=== PATIENT | male | born 1940 | race Caucasian/White ===

== ENCOUNTER 2016-10-31 06:04 | Day surgery (SDC) | payer MEDICARE ==
[~2016-10-31] VITALS: Ht 170.2 cm; Wt 85.0 kg
[2016-10-31] VITALS (9 sets, daily range): BP systolic 117–213; BP diastolic 67–123; PULSE 66–103; RESP 16–21; TEMP 97.6–98.1; O2SAT 93–98
[~2016-10-31 06:04] MED LIST: ALLE10TA10; AMIO200T PO; FISH1000; METO50TA PO; PRAD150C PO; SIMV20TA PO; ZYRT10CA PO
[2016-10-31] MEDS: NS 1000 ML IV SCH (06:30)
[2016-10-31] MEDS ORDERED: SODIUM CHLORID 0.9% 500 ML IV SCH (06:30)
[2016-10-31] MEDS: LACTATED RINGER'S 1000 ML IV SCH (06:30)
[2016-10-31] MEDS ORDERED: NO Heparin, Lovenox, Coumadin at least 12 hours prior to procedure. XX PRN (06:30)
[2016-10-31] MEDS ORDERED: METOPROLOL TARTRATE 25 MG TAB PO PRN (06:30)
[2016-10-31] MEDS ORDERED: Hold AM Insulin & AM Hypoglycemic medications in diabetic patients XX PRN (06:30)
[2016-10-31] MEDS ORDERED: LORazepam 1 MG TAB SL SCH (06:30)
[2016-10-31] MEDS ORDERED: INSULIN HUMAN REGULAR 1,000 UNITS/10 ML VIAL SQ PRN (06:30)
[2016-10-31 07:32] LABS: APTT (PATIENT) 21.7 SEC (24.3-30.1); INTERNATIONAL NORMALIZED RATIO 1.1 RATIO; PROTHROMBIN TIME - PATIENT 12.3 SEC (9.8-11.6)
[2016-10-31 07:36] LABS: BASOPHIL % 0.5 % (0.0-2.0); EOSINOPHIL # 0.3 TH/MM3 (0-0.4); EOSINOPHIL % 5.2 % (0.0-4.0); HEMATOCRIT 44.4 % (39.0-51.0); LYMPH % 23.1 % (9.0-44.0); LYMPHOCYTE # 1.6 TH/MM3 (1.0-4.8); MEAN CELL VOLUME 94.9 FL (80.0-100.0); MEAN CORPUSCULAR HEMOGLOBIN 32.1 PG (27.0-34.0); MEAN CORPUSCULAR HGB CONC 33.9 % (32.0-36.0); MONO % 11.9 % (0.0-8.0); NEUT % 59.3 % (16.0-70.0); PLATELET COUNT 201 TH/MM3 (150-450); RED BLOOD COUNT 4.68 MIL/MM3 (4.50-5.90); RED CELL DISTRIBUTION WIDTH 13.6 % (11.6-17.2); WHITE BLOOD COUNT 6.7 TH/MM3 (4.0-11.0)
[2016-10-31 07:42] LABS: HEMO FLAGS AUTO DIFF
[2016-10-31 07:53] LABS: BICARBONATE 27.7 MEQ/L (21.0-32.0); POTASSIUM 4.1 MEQ/L (3.5-5.1)
[2016-10-31] MEDS ORDERED: PROTAMINE SULFATE 50 MG/5 ML VIAL ONE (09:02)
[2016-10-31] MEDS ORDERED: LEVOFLOXACIN 500 MG PREMIX INJ 100 ML IV ONE (09:02)
[2016-10-31] MEDS ORDERED: ISOPROTERENOL HCL 1 MG/5 ML AMP ONE (09:02)
[2016-10-31] MEDS ORDERED: HEPARIN-D5W INJ 250 ML ONE (09:02)
[2016-10-31] MEDS ORDERED: HEPARIN SODIUM - IV 10,000 UNITS/10 ML VIAL ONE (09:03)
[2016-10-31] MEDS ORDERED: HEPARIN-NS/PF INJ 500 ML ONE (09:04)
[2016-10-31 09:58] LABS: SCAN/DIFF AUTO DIFF CONFIRMED
[2016-10-31] MEDS ORDERED: MIDAZOLAM HCL 2 MG/2 ML VIAL ONE (12:52)
[2016-10-31] MEDS ORDERED: fentaNYL CITRATE 250 MCG/5 ML AMP ONE (12:52)
[2016-10-31] MEDS ORDERED: METOCLOPRAMIDE HCL 10 MG/2 ML VIAL IV PRN (13:15)
[2016-10-31] MEDS ORDERED: ATROPINE SULFATE 1 MG/ML VIAL IV PRN (13:15)
[2016-10-31] MEDS ORDERED: BACITRACIN OINT 0.9 GM PKT TOP ONE (13:15)
[2016-10-31] MEDS ORDERED: ONDANSETRON HCL 4 MG/2 ML VIAL IV PRN (13:15)
[2016-10-31] MEDS ORDERED: oxyCODONE/ACETAMINOPHEN 5 MG/325 MG TAB PO PRN (13:15)
[2016-10-31] MEDS ORDERED: LIDOCAINE HCL 1% 50 ML VIAL INFIL PRN (13:15)
[2016-10-31] MEDS ORDERED: LORazepam 2 MG/ML VIAL IV PRN (13:15)
[2016-10-31] MEDS ORDERED: SODIUM CHLOR 0.9% 250 ML INJ 250 ML IV PRN (13:15)
--- NOTE | 2016-10-31 13:19 | ETE ---
Study Study Date:10/31/2016 STUDY CONCLUSIONS SUMMARY - Left ventricle: The cavity size was normal. Wall thickness was normal. Systolic function was normal. The estimated ejection fraction was in the range of 55% to 60%. Wall motion was normal; there were no regional wall motion abnormalities. - Aortic valve: No evidence of vegetation. - Mitral valve: No evidence of vegetation. - Left atrium: No evidence of thrombus in the atrial cavity or appendage. No evidence of thrombus in the atrial cavity or appendage. - Right atrium: No evidence of thrombus in the atrial cavity or appendage. - Atrial septum: No defect or patent foramen ovale was identified. Echo contrast study showed no ylinv-vd-tyli atrial level shunt, at baseline or with provocation. - Tricuspid valve: No evidence of vegetation. - Pulmonic valve: No evidence of vegetation. If LV function is below 40, please consider prescribing an ACEI or ARB or document rationale for non-use. PROCEDURE DATA Consent: The risks, benefits, and alternatives to the procedure were explained to the patient and informed consent was obtained. Procedure: Initial setup. The patient was brought to the laboratory in the fasting state. Intravenous access was obtained. Surface ECG leads and pulse oximetric signals were monitored. Sedation. Conscious sedation was administered by cardiology staff. Transesophageal echocardiography. Topical anesthesia was obtained using viscous lidocaine. A transesophageal probe was inserted by the attending physician general internal medicine. Image quality was good. Study completion: All IVs inserted during the procedure were removed. The patient tolerated the procedure well. There were no complications. Transesophageal echocardiography. 2D, complete spectral Doppler, and color Doppler. CARDIAC ANATOMY LEFT VENTRICLE: The cavity size was normal. Wall thickness was normal. Systolic function was normal. The estimated ejection fraction was in the range of 55% to 60%. Wall motion was normal; there were no regional wall motion abnormalities. AORTIC VALVE: Trileaflet; mildly thickened leaflets. Cusp separation was normal. No evidence of vegetation. Doppler: No significant regurgitation. Aorta: - There was no atheroma. There was no evidence for dissection. Aortic root: The aortic root was not dilated. Ascending aorta: The ascending aorta was normal in size. Aortic arch: The aortic arch was normal in size. Descending aorta: The descending aorta was normal in size. MITRAL VALVE: Structurally normal valve. Leaflet separation was normal. No evidence of vegetation. Doppler: Trace regurgitation. LEFT ATRIUM: The atrium was normal in size. No evidence of thrombus in the atrial cavity or appendage. No evidence of thrombus in the atrial cavity or appendage. The appendage was morphologically a left appendage, multilobulated, and of normal size. Emptying velocity was normal. ATRIAL SEPTUM: No defect or patent foramen ovale was identified. Echo contrast study showed no gizar-xl-cgdw atrial level shunt, at baseline or with provocation. RIGHT VENTRICLE: The cavity size was normal. Wall thickness was normal. Systolic function was normal. PULMONIC VALVE: Structurally normal valve. No evidence of vegetation. TRICUSPID VALVE: Structurally normal valve. Leaflet separation was normal. No evidence of vegetation. Doppler: No significant regurgitation. PULMONARY ARTERY: The main pulmonary artery was normal-sized. RIGHT ATRIUM: The atrium was normal in size. No evidence of thrombus in the atrial cavity or appendage. The appendage was morphologically a right appendage. PERICARDIUM: There was no pericardial effusion. Prepared and signed by Rima Tijerina [id number]
[2016-10-31] MEDS ORDERED: DO NOT ADM ANY ANTICOAGULANT DRUGS XX PRN (13:30)
[2016-10-31] MEDS ORDERED: *morphine SULFATE 8 MG/ML PERIprocedure ONLY ONE (14:07)
--- NOTE | 2016-10-31 15:22 | MA ---
cc: DURGA TIJERINA M.D. DATE: 10/31/2016 PROCEDURE Electrophysiology study, CS cannulation, 3-D mapping, transeptal approach, right and left heart catheterization and radiofrequency ablation of atrial fibrillation, pulmonary vein isolation, posterior ablation, anterior ablation, left atrial tachycardia ablation, atrial flutter ablation and right atrial tachycardia ablation, cardioversion, repeat electrophysiology study on Isuprel infusion, that was a very complex case. INDICATION Mr. Regan is a 75-year-old gentleman with atrial fibrillation, previous ablation, very symptomatic, to undergo electrophysiology study and ablation. The risks, the nature and the benefit of the procedure are clearly stated to him. The risks include pneumothorax, cardiac perforation, stroke, need for open heart surgery and even . The patient understood and agreed to proceed. PROCEDURE As written informed consent was obtained prior to electrophysiology study, the patient was kept on the table where he was prepped and draped in the usual sterile fashion. Conscious sedation was initiated and maintained throughout the procedure by anesthesiologist. Once sedation was verified, the right and left inguinal area was anesthetized with 2% Xylocaine. Using modified Seldinger technique, the right femoral vein was cannulated on one occasion, one guidewire was advanced. Over the wire an 8-Tunisian Hemaquet was advanced, then the left femoral vein was cannulated on three occasions and three guidewires were advanced. Over the wire a 6, 7 and a 10-Tunisian Hemaquet were advanced. Subsequently, the left femoral artery was cannulated on one occasion and one guidewire was advanced. Over the wire a 4-Tunisian Hemaquet was advanced. Then under fluoroscopic guidance through the 5 and 6-Tunisian Hemaquet, two 5-Tunisian Yuliana curved quadripolar electrophysiology catheters were advanced and placed around the His as well as coronary sinus. The patient was in atrial fibrillation, left atrial tachycardia. Then through the 10-Tunisian Hemaquet, a Cordis Herrera AcuNav intracardiac echo catheter was advanced and placed at the right atrium. Multiple view was obtained. There is no pericardial effusion. Pulmonary vein was seen. Atrial septum was visualized. Then the 8-Tunisian Hemaquet in the right femoral vein was exchanged for an IG distal septal sheath that was placed all the way to the superior vena cava. Through the sheath a Tarsha needle was advanced, then the sheath, the dilator and the needle were pulled back progressively until foci engaged. Once engaged needle was advanced. RF was delivered for 2 seconds. I was able to cross into the left atrium. Once the needle crossed the dilator was advanced. When the dilator crossed sheath was advanced, the sheath crossed the needle and the dilator was removed. I did flood the system, fluid movement seen in left atrium that indicates sheath in good position. Intracardiac echo showed sheath in good position. The patient already received 10,000 units of heparin. The goal is to keep an ACT around 350 during the ablation. Through the sheath a St. Shaheed 20 pulse circumferential catheter was advanced. Using [employer] endocardial solution mapping system a two-dimensional configuration of the left atrium was obtained. Point was taken at the left superior inferior vein, right superior inferior vein, mitral valve and appendage. There was signal in the right veins. First I did proceed with isolation of the right vein. First I did advance to the sheath a St. Shaheed TactiCath 65 cm 3-1/2 mm irrigated tipped mapping radiofrequency ablation catheter. Esophageal probe was placed for comparative monitoring during ablation and increased moved to a different area of the atrium. First I did isolate the right superior inferior vein. Then the anterior was ablated. The patient was in left atrial tachycardia. Cycle length was around 240-280 milliseconds. Then I did ablate around the valve. The tachyarrhythmia was stable but AV node conduction decreased. Further burn was delivered in the anterior wall. Then roof line was created. Early activation was mapped. Then subsequently a septal and floor area were ablated. I did advance the circumferential catheter for mapping again. There was a early activation in the roof area. The roof area was ablated. At this point I re-mapped the atrium. There is no significant activation. Left atrial appendage was ___. I did ablate previously around the appendage. Then I decided to proceed with right-sided ablation. ACS was decannulated. And then I ablated around the coronary sinus. Cycle length prolonged. I did realize there may be early activation and critical isthmus. At this point I cannot receive the catheter, I decided to exchange the St. Shaheed catheter for a Cordis Herrera F curve 8 mm mapping radiofrequency ablation catheter. Critical isthmus was mapped and ablated. At that point cycle length was around 240-260 milliseconds. I decided to proceed with cardioversion, a 200 sync biphasic joule was delivered that converted the patient into sinus rhythm. Pacing from the vein showed no conduction to the atrium. Atrial pacing protocol was performed. No tachyarrhythmia was induced. Isuprel infusion was initiated 10 laney for over 15 minutes, no tachyarrhythmia was induced. At that point procedure was complete. All catheters were removed. The patient going to be transferred to the recovery room. That was a very complex, difficult and long case. No incident report. The patient tolerated the procedure. Blood loss was minimal. 1. Electrocardiogram. At baseline the patient was in atrial fibrillation, postprocedure the patient in sinus rhythm. 2. Basic interval. Base cycle length was around 480 milliseconds, post ablation around 980. 3. Atrial pacing protocol. No tachyarrhythmia was induced post ablation. 4. Tachyarrhythmia. Atrial fibrillation was mapped and ablated, atrial tachycardia was ablated, atrial flutter was ablated, right atrial tachycardia was ablated. Ablation was successful. CONCLUSION Successful electrophysiology study, mapping, radiofrequency ablation of atrial fibrillation, left atrial tachycardia, right atrial tachycardia and atrial flutter. COMMENT AND RECOMMENDATION The patient is going to be transferred to the recovery room. Will be observed and when stable can be discharged home. Durga Tijerina MD HS/VEDAL /1:17 PM /2:44 PM
[2016-10-31] MEDS ORDERED: PROPOFOL 200 MG/20 ML AMP IV ONE (16:27)
[2016-10-31] MEDS: AMIODARONE 200 MG TAB PO SCH (20:45)
[2016-10-31] MEDS: oxyCODONE/ACETAMINOPHEN 5 MG/325 MG TAB PO PRN (20:46)
--- NOTE | 2016-10-31 20:53 | EKG ---
Date Performed: 10/31/2016 Time Performed: 06:59:54 PTAGE: 75 years EKG: atrial fibrillation PREVIOUS TRACING : 08/21/2016 05.17 DOCTOR: Medhat Wallace Interpretating Date/Time 10/31/2016 20:52:41
[2016-10-31] MEDS: DABIGATRAN ETEXILATE 150 MG CAP PO SCH (23:32)
[2016-11-01] VITALS (20 sets, daily range): BP systolic 127–153; BP diastolic 64–70; PULSE 63–77; RESP 18–20; TEMP 97.7–99.4; O2SAT 92–95
[2016-11-01] MEDS: oxyCODONE/ACETAMINOPHEN 5 MG/325 MG TAB PO PRN (01:17)
[2016-11-01 04:20] LABS: INTERNATIONAL NORMALIZED RATIO 1.1 RATIO; PROTHROMBIN TIME - PATIENT 12.7 SEC (9.8-11.6)
[2016-11-01] MEDS: NS 1000 ML IV SCH (05:45)
[2016-11-01] MEDS: LACTATED RINGER'S 1000 ML IV SCH (05:45)
[2016-11-01] MEDS: AMIODARONE 200 MG TAB PO SCH (08:24)
[2016-11-01] MEDS ORDERED: PRAVASTATIN SOD 40 MG TAB PO SCH (09:00)
--- NOTE | 2016-11-01 09:29 | PD.CARD.PN ---
Subjective Subjective Remarks Feels ok. Objective Medications Current Medications Medications (Trade) Dose Ordered Sig/Marisabel Route Start Time Stop Time Status Last Admin Miscellaneous Information Hold AM Insulin & ... UNSCH PRN XX 10/31/16 06:30 11/04/16 06:29 Miscellaneous Information NO Heparin, Loven... UNSCH PRN XX 10/31/16 06:30 11/04/16 06:29 Sodium Chloride 1,000 ml @ 30 mls/hr Q24H IV 10/31/16 06:30 10/31/16 06:30 (Lr 1000 ml Inj) 1,000 ml @ 30 mls/hr Q24H IV 10/31/16 06:30 (Percocet 5-325 Mg) 1 tab Q4H PRN PO 10/31/16 13:15 (Percocet 5-325 Mg) 2 tab Q4H PRN PO 10/31/16 13:15 11/01/16 01:17 (Ativan Inj) 0.5 mg UNSCH PRN IV 10/31/16 13:15 11/01/16 13:14 Atropine Sulfate 0.5 mg 0.5 mg UNSCH PRN IV 10/31/16 13:15 (NS 250 ml Inj) 250 ml @ 500 mls/hr ONCE PRN IV 10/31/16 13:15 11/01/16 13:14 (Reglan Inj) 10 mg Q4H PRN IV 10/31/16 13:15 (Zofran Inj) 4 mg Q4H PRN IV 10/31/16 13:15 (Xylocaine 1% Inj (50 ml)) 10 ml UNSCH PRN INFIL 10/31/16 13:15 11/01/16 13:14 (Cordarone) 200 mg DAILY PO 10/31/16 15:00 11/01/16 08:24 (Pradaxa) 150 mg BID PO 10/31/16 21:00 10/31/16 23:32 (Pravachol) 40 mg DAILY PO 11/01/16 09:00 11/01/16 08:24 Miscellaneous Information ALL NURSING DEPARTME... UNSCH PRN XX 10/31/16 13:30 11/01/16 13:29 Vital Signs / I&O Vital Signs Date Time Temp Pulse Resp B/P Pulse Ox O2 Delivery O2 Flow Rate FiO2 11/01/16 09:00 68 11/01/16 08:00 94 Room Air 11/01/16 08:00 67 11/01/16 08:00 99.4 69 20 153/70 94 11/01/16 07:33 92 21 11/01/16 07:00 66 11/01/16 06:00 67 11/01/16 05:00 69 11/01/16 04:00 67 11/01/16 03:00 68 11/01/16 03:00 95 Room Air 11/01/16 03:00 98.4 69 18 127/68 95 11/01/16 02:00 67 11/01/16 01:00 74 11/01/16 00:00 74 10/31/16 23:00 98.1 70 21 117/67 97 10/31/16 23:00 68 10/31/16 23:00 97 Room Air 10/31/16 22:36 21 10/31/16 22:00 71 10/31/16 21:00 69 10/31/16 20:00 68 10/31/16 19:00 66 10/31/16 19:00 98.0 68 20 128/68 93 10/31/16 19:00 98.0 68 20 128/68 93 10/31/16 19:00 93 Room Air 10/31/16 18:00 67 10/31/16 17:30 97.6 67 16 140/67 95 10/31/16 17:00 67 10/31/16 16:36 58 16 149/83 99 Room Air 10/31/16 15:30 64 16 136/74 99 Room Air 10/31/16 14:30 61 16 135/83 99 Room Air 10/31/16 13:30 63 16 142/77 99 Nasal Cannula 3 10/31/16 13:15 62 16 140/78 99 Nasal Cannula 3 10/31/16 13:00 73 16 136/60 99 Nasal Cannula 3 10/31/16 12:54 97.4 58 16 149/83 99 Nasal Cannula 3 I/O 10/31/16 10/31/16 10/31/16 11/01/16 11/01/16 11/01/16 07:00 15:00 23:00 07:00 15:00 23:00 Intake Total 1000 ml 1480 ml 240 ml Output Total 620 ml 175 ml 350 ml Balance 380 ml 1305 ml -110 ml Intake Oral 480 ml 240 ml IV Total 1000 ml Other 1000 ml Output Urine Total 175 ml 350 ml Estimated Blood Loss 20 ml Other 600 ml # Bowel Movements 0 Physical Exam GENERAL: Well-nourished, well-developed patient. SKIN: Warm and dry. Groin sites soft with no hematoma or bleeding. HEAD: Normocephalic. EYES: No scleral icterus. No injection or drainage. NECK: Supple, trachea midline. No JVD or lymphadenopathy. CARDIOVASCULAR: Regular rate and rhythm without murmurs, gallops, or rubs. RESPIRATORY: Breath sounds equal bilaterally. No accessory muscle use. GASTROINTESTINAL: Abdomen soft, non-tender, nondistended. EXTREMITIES: No cyanosis, or edema. NEUROLOGICAL: Awake, alert, and oriented x 3. Non-focal. Laboratory Laboratory Tests Test 11/01/16 03:54 Prothrombin Time 12.7 SEC Prothromb Time International 1.1 RATIO Ratio Activated Partial 29.0 SEC Thromboplast Time Assessment and Plan Problem List: (1) Atrial fibrillation Assessment and Plan: NSR s/p ablation. (2) S/P ablation of atrial fibrillation Assessment and Plan: Groin sites stable, NSR, d/c home, f/u with Dr. Tijerina in 3 weeks per my d/w him. Problem Qualifiers (1) Atrial fibrillation: Qualified Code: I48.0 - Paroxysmal atrial fibrillation Sandy Young Nov 01, 2016 09:29
[2016-11-01] MEDS: DABIGATRAN ETEXILATE 150 MG CAP PO SCH (09:59)
[2016-11-01] MEDS ORDERED: FUROSEMIDE 20 MG/2 ML VIAL IV PUSH ONE (12:30)
[2016-11-01] MEDS ORDERED: TAMSULOSIN HCL 0.4 MG CAP PO SCH (16:00)
--- NOTE | 2016-11-01 22:42 | EKG ---
Date Performed: 11/01/2016 Time Performed: 03:35:46 PTAGE: 75 years EKG: Sinus rhythm Normal ECG PREVIOUS TRACING : 10/31/2016 13.38 DOCTOR: Rima Tijerina Interpretating Date/Time 11/01/2016 22:39:55
--- NOTE | 2016-11-01 22:58 | EKG ---
Date Performed: 10/31/2016 Time Performed: 13:38:01 PTAGE: 75 years EKG: Sinus rhythm PROLONGED QT INTERVAL ABNORMAL ECG PREVIOUS TRACING : 10/31/2016 06.59 DOCTOR: Rima Tijerina Interpretating Date/Time 11/01/2016 22:50:16
== END 2016-11-01 18:35 | disposition home or self-care (01) ==
LOC: HDOC 06:04 → HDIC 06:06 → HCPC 17:15 → HDOC 11-01 18:35
PROVIDERS: ATTEND Internal Medicine Interventional Cardiology
DX: I48.0 Paroxysmal atrial fibrillation (principal); I10 Essential (primary) hypertension; E78.5 Hyperlipidemia, unspecified; Z79.01 Long term (current) use of anticoagulants; Z79.4 Long term (current) use of insulin
CPT/HCPCS: 00537; 80048; 85002; 85025; 85610; 85730; 86850; 86900; 86901; 92960; 93005; 93312; 93320; 93325; 93613; 93623; 93656; 93662; C1730; C1731; C1732; C1759; C1766; C2630; J1644; J1940; J1956; J2250; J2270; J2720; J3010; J7030